=== PATIENT | female | born 2000 | race Caucasian/White ===

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

== ENCOUNTER 2021-01-13 16:07 | Emergency (ER) | payer OTHER ==
[~2021-01-13] VITALS: Ht 177.8 cm; Wt 66.7 kg
[~2021-01-13 16:07] MED LIST changes: +APAP W/CODEINE1 TA2 PO; +HYDROXYZINE HCL25 M2 PO; +NAPROSYN500 MG PO; +PROAIR HFA8.5 GM INH
[2021-01-13 17:37] VITALS: BP 132/90
== END 2021-01-13 17:38 | disposition home or self-care (01) ==
LOC: M.ERS 16:07
DX: S93.492A Sprain of other ligament of left ankle, initial encounter (principal); M25.561 Pain in right knee; J45.909 Unspecified asthma, uncomplicated; Z91.040 Latex allergy status; V89.2XXA Person injured in unspecified motor-vehicle accident, traffic, initial encounter; Y93.89 Activity, other specified; Y92.89 Other specified places as the place of occurrence of the external cause; Y99.8 Other external cause status